=== PATIENT | male | born 1955 | race Caucasian/White ===

== ENCOUNTER → 2018-01-28 | Outpatient (CLI) | payer OTHER ==
--- NOTE | 2018-01-28 12:43 | EKG ---
Date Performed: 01/28/2018 Time Performed: 09:54:48 PTAGE: 62 years EKG: Sinus rhythm with borderline 1st degree A-V block. Right bundle branch block Abnormal ECG Since the PREVIOUS TRACING , no significant change noted PREVIOUS TRACING DOCTOR: Mark Babb Interpretating Date/Time 01/28/2018 12:40:44
== END ==
LOC: HCAV 09:39
DX: F33.40 Major depressive disorder, recurrent, in remission, unspecified (principal); R94.31 Abnormal electrocardiogram [ECG] [EKG]
CPT/HCPCS: 93005